=== PATIENT | male | born 1985 | race Two or more races ===

== ENCOUNTER 2018-02-15 15:35 | Emergency (ER) | payer OTHER ==
[~2018-02-15] VITALS: Ht 190.5 cm; Wt 120.5 kg
[2018-02-15 17:44] LABS: INFLUENZA TYPE A NEGATIVE FOR TYPE A (NEGATIVE); INFLUENZA TYPE B NEGATIVE FOR TYPE B (NEGATIVE)
[2018-02-15 18:13] VITALS: BP 130/88
== END 2018-02-15 18:15 | disposition home or self-care (01) ==
LOC: EMS 15:37
DX: J06.9 Acute upper respiratory infection, unspecified (principal); F12.90 Cannabis use, unspecified, uncomplicated; Z87.891 Personal history of nicotine dependence
CPT/HCPCS: 87804; 99284